=== PATIENT | female | born 1960 | race Caucasian/White ===

== ENCOUNTER 2016-07-18 22:41 | Emergency (ER) | payer SELFPAY ==
[~2016-07-18] VITALS: Ht 160 cm; Wt 68.0 kg
[~2016-07-18 22:41] MED LIST: NORVASC5 MG ORAL
[2016-07-19] MEDS ORDERED: Ketorolac 30mg Inj IV ONE
[2016-07-19 00:32] LABS: APPEARANCE,URINE CLEAR; KETONES,URINE NEGATIVE (NEGATIVE); LEUKOCYTE ESTERASE ,URINE 1+ (NEGATIVE); NITRITE,URINE NEGATIVE (NEGATIVE); PH,URINE 6 (4.5-8.0); PROTEIN,URINE NEGATIVE (NEGATIVE); UROBILINOGEN,URINE NORMAL MG/DL (0.0-1.0)
[2016-07-19 00:32] LABS: BASOPHILS % (AUTO) 1.2 % (0.0-2.0); EOSINOPHILS % (AUTO) 1.1 % (0.0-3.0); LYMPHOCYTES % (AUTO) 49.7 % (20.0-45.0); MEAN CORPUSCULAR HGB CONC 33.1 G/DL (32.0-36.0); MEAN CORPUSCULAR VOLUME 87 FL (80-99); MEAN PLATELET VOLUME 5.8 FL (6.5-10.1); MONOCYTES % (AUTO) 6.8 % (1.0-10.0); NEUTROPHILS % (AUTO) 41.2 % (45.0-75.0); PLATELET COUNT 189 K/UL (150-450); RED BLOOD COUNT 4.57 M/UL (4.20-5.40); RED CELL DISTRIBUTION WIDTH 12.4 % (11.6-14.8); WHITE BLOOD COUNT 8.4 K/UL (4.8-10.8)
[2016-07-19 00:42] LABS: RBC,URINE 0-2 /HPF (0 - 2); SQUAMOUS EPITHELIAL CELL,UR FEW /LPF (NONE/OCC)
[2016-07-19 00:44] LABS: ANION GAP 14 (5-15); CALCIUM 9.7 mg/dL (8.6-10.2); CARBON DIOXIDE 27 mEQ/L (20-30); CHLORIDE 98 mEQ/L (98-107); CREATININE 0.7 mg/dL (0.5-0.9); GLOMERULAR FILTRATION RATE > 60 mL/min (>60); HEMOLYSIS 5; SODIUM 139 mEQ/L (135-145)
[2016-07-19 00:48] VITALS: BP 121/81
[2016-07-19] MEDS ORDERED: HYDROCODON-ACE1 EA15 ORAL (01:32)
--- NOTE | 2016-07-19 01:33 | Emergency Room Report ---
History of Present Illness General Chief Complaint: Abdominal Pain Source: Patient Present Illness HPI Is a 56-year-old female with a history of kidney stone. About 2 months ago she has an outpatient CT that showed a 4 mm stone in the proximal ureter. She was scheduled for surgery but changing insurance and never had it done. She seen to get better over it. Now she presents with chief complaint of right lower quadrant pain for the last day. Has urinary frequency but no urgency. No fever or hematuria. She been taking Cipro that she had leftover. Pain is 8/10 crampy in nature. No vomiting or diarrhea. Also said that she felt a lump in the right pelvic area. Allergies: Coded Allergies: No Known Allergies (Unverified , 12/29/13) Patient History Past Medical History: see triage record, old chart reviewed Past Surgical History: other Pertinent Family History: none Social History: Denies: smoking Last Menstrual Period: NO MORE PERIOD Now: No Reviewed Nursing Documentation: PMH: Agreed, PSxH: Agreed Nursing Documentation-PMH Past Medical History: No Stated History Hx Cardiac Problems: No Hx Hypertension: Yes Hx Cancer: No Hx Gastrointestinal Problems: No Hx Neurological Problems: No Review of Systems Eye: Denies: blurred vision, eye pain ENT: Denies: ear pain, nose congestion, throat swelling Respiratory: Denies: cough, shortness of breath Cardiovascular: Denies: chest pain, palpitations Gastrointestinal: Reports: abdominal pain, Denies: diarrhea, nausea, vomiting Genitourinary: Reports: frequency Musculoskeletal: Denies: back pain, joint pain Skin: Denies: rash Neurological: Denies: headache, numbness Endocrine: Denies: increased thirst, increased urine Hematologic/Lymphatic: Denies: easy bruising All Other Systems: negative except mentioned in HPI Physical Exam Vital Signs Date Time Temp Pulse Resp B/P Pulse Ox O2 Delivery O2 Flow Rate FiO2 07/18/16 23:05 98.1 64 18 136/87 96 Room Air vitals unremarkable Sp02 EP Interpretation: reviewed, normal General Appearance: well appearing, no apparent distress, alert Head: normocephalic, atraumatic Eyes: bilateral eye EOMI, bilateral eye PERRL ENT: hearing grossly normal, normal pharynx Neck: full range of motion, supple, no meningismus Respiratory: chest non-tender, lungs clear, normal breath sounds Cardiovascular #1: regular rate, rhythm, no murmur Gastrointestinal: normal bowel sounds, non tender, no mass, no organomegaly, no bruit, non-distended Genitourinary: other - Bimanual exam done with female RN customer service officer. Extremity exam normal. Internal exam normal. I did not palpate any mass. Musculoskeletal: back normal, gait/station normal, normal range of motion Neurologic: alert, oriented x3 Psychiatric: mood/affect normal Skin: warm/dry Medical Decision Making Diagnostic Impression: Primary Impression: Ureteral calculus, right ER Course Patient presents with a 7 mm right UVJ ureteral stone the is no significant right hydronephrosis. She is pain-free now. We'll discharge home. I told her to continue with antibiotics and Flomax. Will write for pain medication. She already has a urologist. I will give her a copy of her CT scan. Told patient to come back for fever, intractable pain or any concern. Lab Results Impression labs unremarkable Last Vital Signs Date Time Temp Pulse Resp B/P Pulse Ox O2 Delivery O2 Flow Rate FiO2 07/19/16 00:48 58 16 121/81 97 Room Air 07/19/16 00:46 98.0 Status: improved Disposition: HOME, SELF-CARE Condition: Stable Scripts Hydrocodone/Acetaminophen 5-325* (HYDROCODONE/ACETAMINOPHEN 5-325*) 1 Each Tablet 1 TAB ORAL Q6H Y for For Pain, #30 TAB 0 Refills Prov: GA OWUSU M.D. 07/19/16 Additional Instructions: Followup with your DrMihaela in 2-3 days. You may need a referral to see your urologist again. Return if worse. Return for fever. Continue her Cipro and Flomax. GA OWUSU M.D. Jul 19, 2016 01:33
[2016-07-19 01:40] VITALS: BP 123/80
--- NOTE | 2016-07-19 10:32 | Diagnostic Imaging Report ---
Indication: Abdominal pain Technique: Spiral acquisitions obtained through the abdomen and pelvis. No oral contrast utilized, per emergency room physician request No IV contrast utilized, per referring physician request.. Multiplanar reconstructions were generated. Total dose length product 797 mGycm. CTDIvol(s) 50 mGy. Dose reduction achieved using automated exposure control Comparison: None Findings: There is a 5 mm calculus in the right distal ureter, at the ureterovesical junction. Despite this, there is no hydroureter hydronephrosis, except for possibly slight dilatation of the distal ureter. The right kidney demonstrates some tiny calyceal calculi. There is very slight fullness to the left renal collecting system, but no downstream obstruction lesion is demonstrated. Calcifications in the left side of the pelvis appear to be extra ureteral, likely phleboliths. Lack of IV contrast limits assessment of the renal parenchyma. There is a 2 cm left lower pole renal cyst. The appendix is normal. There is no evidence of diverticulosis or diverticulitis. No small bowel distention. No free or loculated intraperitoneal air or fluid is evident. The distal esophagus, stomach, duodenum are unremarkable. Lack of IV contrast limits assessment of the solid organs. The liver is unremarkable. The gallbladder is nondistended. No biliary ductal dilatation. Pancreas, spleen, adrenals are unremarkable. The included lung bases are clear. The bones are unremarkable. Impression: Positive for 5 mm right distal ureter calculus. No resultant hydronephrosis, only minimal hydroureter, however. Tiny nonobstructive right renal calculi Incidental finding of left renal cyst This agrees with the preliminary interpretation provided overnight by [facility]. The CT scanner at [facility] is accredited by the [employer] and the scans are performed using protocols designed to limit radiation exposure to as low as reasonably achievable to attain images of sufficient resolution adequate for diagnostic evaluation.
== END 2016-07-19 01:45 | disposition home or self-care (01) ==
LOC: EMR 23:23
DX: N20.1 Calculus of ureter (principal); I10 Essential (primary) hypertension
CPT/HCPCS: 36415; 74176; 80048; 81003; 85025; 96360; 96374; 99284; J1885